=== PATIENT | male | born 1970 | race Caucasian/White ===

== ENCOUNTER 2018-05-16 16:00 | Outpatient (CLI) | payer BC | END 2018-05-16 16:01 | disposition home or self-care (01) | LOC: SLEEPLAB 16:00 | PROVIDERS: ATTEND Internal Medicine | DX: G47.33 Obstructive sleep apnea (adult) (pediatric) (principal); R53.83 Other fatigue; I10 Essential (primary) hypertension; G47.00 Insomnia, unspecified; R06.83 Snoring; G47.19 Other hypersomnia | CPT/HCPCS: 95806 ==